=== PATIENT | female | born 1940 | race Caucasian/White ===

== ENCOUNTER 2016-07-31 09:01 | Outpatient (CLI) ==
[2016-07-31 09:21] LABS: BILIRUBIN,URINE Negative (NEGATIVE); KETONES,URINE Negative (NEGATIVE); LEUKOCYTE ESTERASE ,URINE 1+ (NEGATIVE); NITRITE,URINE Positive (NEGATIVE); PROTEIN,URINE Negative (NEGATIVE); URINE, BLOOD Negative (NEGATIVE)
[2016-07-31 09:22] LABS: ADD URINE MICROSCOPIC YES
[2016-07-31 09:26] LABS: BACTERIA,URINE 3+ (NOT PRESENT)
== END 2016-07-31 09:02 | disposition home or self-care (01) ==
LOC: NONPT 09:01
PROVIDERS: ATTEND Family Medicine
DX: R41.0 Disorientation, unspecified (principal); Z79.899 Other long term (current) drug therapy
CPT/HCPCS: 81001; 87086; 87186

== ENCOUNTER 2016-09-24 12:13 | Outpatient (CLI) | END 2016-09-24 12:14 | LOC: AMBL 12:13 | PROVIDERS: ATTEND Internal Medicine | DX: R05 Cough (principal); R09.89 Other specified symptoms and signs involving the circulatory and respiratory systems; R09.02 Hypoxemia; M62.40 Contracture of muscle, unspecified site; R41.82 Altered mental status, unspecified; R41.0 Disorientation, unspecified; R40.2421 Glasgow coma scale score 9-12, in the field [EMT or ambulance]; Z86.73 Personal history of transient ischemic attack (TIA), and cerebral infarction without residual deficits ==

== ENCOUNTER 2017-04-23 07:17 | Outpatient (CLI) | END 2017-04-23 07:18 | disposition short-term general hospital (02) | LOC: AMBL 07:17 | PROVIDERS: ATTEND Emergency Medicine | DX: R50.9 Fever, unspecified (principal); R06.9 Unspecified abnormalities of breathing; R05 Cough ==

== ENCOUNTER 2017-05-12 13:46 | Outpatient (CLI) ==
[2017-05-12 21:44] VITALS: BMI 25.4
== END 2017-05-12 13:47 | disposition home or self-care (01) ==
LOC: NONPT 13:46
PROVIDERS: ATTEND Emergency Medicine
DX: R30.0 Dysuria (principal)
CPT/HCPCS: 81001; 87086

== ENCOUNTER 2017-05-12 15:02 | Inpatient (IN) | payer OTHER ==
--- NOTE | 2017-05-12 17:03 | ED.PDOC ---
General ED Provider: Dr. CHICO PORTER Chief Complaint: Diabetes Stated Complaint: Blood glucose at the SC was elevated to over 500 and was sent out for evaluation. Sent here for evaluation for possible infection. Long standing head injury patient. Minimally responsive. Time Seen by Physician: 16:30 Mode of Arrival: Ambulance Information Source: Family, Long-Term, EMT Exam Limitations: Clinical condition, Altered mental status Primary [facility] Nursing and Triage Documentation Reviewed and Agree: Yes Reviewed sepsis parameters & appropriate labs ordered?: Yes System Inflammatory Response Syndrome: Not Applicable Sepsis Protocol: For patient's 13 years and over: Temp is 96.8 and below OR 101 and greater Pulse >90 BPM Resp >20/minute Acutely Altered Mental Status Are patient's symptoms suggestive of a new infection, such as: -Pneumonia -Skin, Soft Tissue -Endocarditis -UTI -Bone, Joint Infection -Implantable Device -Acute Abdominal Infection -Wound Infection -Meningitis -Blood Stream Catheter Infection -Unknown System Inflammatory Response Syndrome: Not Applicable Endocrine Complaint Exam - Diabetic Complication Complaint/Exam Symptoms Are: Still present Timing: Intermittent Initial Severity: Moderate Current Severity: None Character: Unresponsive (minimally verbal) Aggravating: Reports: None Alleviating: Reports: None Associated Signs and Symptoms: Denies: Decreased LOC, Polydipsia, Polyuria, Abdominal pain, Nausea, Vomiting, Fever, Diaphoresis Related History: Reports: DM 2, Insulin requiring Cardiac Risk Factors: Reports: Hypertension, Elevated lipids CVA Risk Factors: Reports: Hypertension Serious Bacterial Infection Risk Factors: Reports: None Related Surgical History: Reports: None Acetone on Breath: No Dry Mucous Membranes: Yes Kussmaul Respirations: No Meningeal Signs: No Focal Weakness: None Focal Sensory Loss: None Gait: Unable Nystagmus Present: No Gag Reflex Present: No Heel to Toe Normal: No Review of Systems - Review Of Systems Constitutional: Reports: Malaise, Weakness Eyes: Reports: No symptoms Ears, Nose, Mouth, Throat: Reports: Loose teeth Respiratory: Reports: No symptoms Cardiac: Reports: No symptoms GI: Reports: No symptoms : Reports: No symptoms Musculoskeletal: Reports: No symptoms Neurological: Reports: Anxiety, Weakness Endocrine: Reports: No symptoms Hematologic/Lymphatic: Reports: No symptoms All Other Systems: Reviewed and Negative Past Medical History - Past Medical History Endocrine: Reports: DM 2, Hypothyroid Cardiovascular: Reports: Hypertension, Other (Elevated lipids) Respiratory: Reports: None Hematological: Reports: None Gastrointestinal: Reports: GERD Genitourinary: Reports: UTI Neuro/Psych: Reports: Dementia Musculoskeletal: Reports: None Cancer: Reports: None Last Menstrual Period: menopause - Surgical History General Surgical History: Reports: None - Family History Family History: Reports: None - Social History Smoking Status: Never smoker Hx Substance Use: No Alcohol Screening: None Lives: In Long-Term Physical Exam - Physical Exam Appearance: Ill-appearing, Obese Ill-appearing: Mild Eyes: WILY, EOMI ENT: Ears normal, Nose normal Neck: Supple Respiratory: Airway patent, Breath sounds clear Cardiovascular: RRR, Pulses normal GI/: Soft, Nontender, No masses, Bowel sounds normal Musculoskeletal: Normal strength Skin: Warm Neurological: Alert to verbal, Abnormal reflexes Psychiatric: Anxious Critical Care Note - Critical Care Note Total Time (mins): 0 Course - Course Hematology/Chemistry: 05/12/17 17:42 05/12/17 17:42 Orders, Labs, Meds: Lab Review 05/12/17 05/12/17 05/12/17 17:38 17:42 17:42 WBC 16.57 H RBC 5.33 Hgb 17.2 H Hct 50.8 H MCV 95.3 MCH 32.3 H MCHC 33.9 RDW Coeff of Elijah 13.2 Plt Count 309 Immature Gran % (Auto) 0.4 Neut % (Auto) 66.3 Lymph % (Auto) 22.5 [place] % (Auto) 8.7 Eos % (Auto) 1.8 Baso % (Auto) 0.3 Immature Gran # (Auto) 0.1 Neut # (Auto) 11.0 H Lymph # (Auto) 3.7 H [place] # (Auto) 1.4 Eos # (Auto) 0.3 Baso # (Auto) 0.1 Sodium 146 H Potassium 3.7 Chloride 104 Carbon Dioxide 31 Anion Gap 14.7 BUN 27 H Creatinine 1.11 Estimated GFR (MDRD) 48.00 BUN/Creatinine Ratio 24.32 Glucose 339 H Calcium 10.7 H Total Bilirubin 0.6 AST 19 ALT 36 Alkaline Phosphatase 187 H Total Protein 7.7 Albumin 3.0 L Globulin 4.7 Albumin/Globulin Ratio 0.64 Influ A Molecular Assay Negative by naat Influ B Molecular Assay Negative by naat Orders Category Date Time Status ADMIT PATIENT INPATIENT .TO MEDSURG (MONITORED BED) ADMISSION 05/12/17 19: 35 Active OXYGEN Routine CARDIO 05/12/17 19:36 Ordered ACTIVITY .BR with BRP CARE 05/12/17 19:36 Active BLOOD GLUCOSE MONITORING 0630,1100,1700,2100 CARE 05/12/17 19:36 Active INTAKE & OUTPUT Q8HR CARE 05/12/17 19:36 Active TELEMETRY MONITORING TELE CARE 05/12/17 19:36 Active VITAL SIGNS Q4HR CARE 05/12/17 19:36 Active CARDIAC DIET DIETARY 05/12/17 Breakfast Ordered CBC W/ AUTO DIFF DAILY@0600 LAB 05/13/17 06:00 Ordered CBC W/ AUTO DIFF DAILY@0600 LAB 05/14/17 06:00 Ordered CBC W/ AUTO DIFF Stat LAB 05/12/17 17:42 Completed CMP [COMPREHENSIVE METABOLIC PANEL] Stat LAB 05/12/17 17:42 Completed COMPREHENSIVE METABOLIC PANEL DAILY@0600 LAB 05/13/17 06:00 Ordered COMPREHENSIVE METABOLIC PANEL DAILY@0600 LAB 05/14/17 06:00 Ordered CREATINE KINASE Q8H LAB 05/13/17 01:45 Ordered CREATINE KINASE Q8H LAB 05/13/17 09:45 Ordered FLU A & B MOLECULAR [FLU A/B MOLECULAR] Stat LAB 05/12/17 17:38 Completed RAPID STREP SCREEN [MOLECULAR GROUP A STREP] Stat LAB 05/12/17 17:38 Completed TROPONIN I Q8H LAB 05/13/17 01:45 Ordered TROPONIN I Q8H LAB 05/13/17 09:45 Ordered Acetaminophen [Tylenol] MEDS 05/12/17 19:36 Ordered 650 mg PO Q4H PRN Amantadine HCl [Amantadine] MEDS 05/12/17 21:00 Ordered 100 mg PO BID Amlodipine Besylate [Norvasc] MEDS 05/13/17 09:00 Ordered 5 mg PO DAILY Aspirin [Aspirin EC] MEDS 05/13/17 09:00 Ordered 81 mg PO DAILY Calcium Carbonate/Vitamin D3 [Calcium 600 + Vit D MEDS 05/12/17 21:00 Ordered Tablet] 1 each PO BID Ceftriaxone Sodium [Rocephin] 1 gm MEDS 05/12/17 20:00 Ordered 0.9 % Sodium Chloride [Sodium Chloride] 50 ml IV DAILY Ipratropium/Albuterol Neb [Duoneb] MEDS 05/13/17 00:00 Ordered 1 vial NEB RTQ6H Levothyroxine Sodium [Synthroid] MEDS 05/13/17 09:00 Ordered 100 mcg PO DAILY Methylphenidate HCl [Ritalin] MEDS 05/12/17 21:00 Ordered 20 mg PO BID Nystatin [Nystop Powder] MEDS 05/12/17 21:00 Ordered 1 applic TP Q8HR Pantoprazole Sodium [Protonix] MEDS 05/13/17 09:00 Ordered 40 mg PO DAILY Polyvinyl Alcohol [Artificial Tears Opth Marina] MEDS 05/12/17 20:00 Ordered 1 drop OP Q12H Potassium Chloride [K-Dur] MEDS 05/12/17 21:00 Ordered 20 meq PO BID Sennosides/Docusate Sodium [Sennosides-Docusate Sodium MEDS 05/12/17 21:00 Ordered Tab] 1 each PO BEDTIME Simvastatin [Zocor] MEDS 05/12/17 21:00 Ordered 10 mg PO BEDTIME Sodium Chloride 0.9% [Sodium Chloride] 1,000 ml MEDS 05/12/17 20:00 Ordered IV 50 mls/hr RESUSCITATION STATUS Routine OTHERS 05/12/17 19:36 Ordered CHEST, 1V AP ONLY Stat RADS 05/12/17 17:19 Taken Medications Generic Name Dose Route Start Last Admin Trade Name Freq PRN Reason Stop Dose Admin Acetaminophen 650 mg 05/12/17 19:36 Tylenol PO Q4H PRN Mild Pain Albuterol/Ipratropium 1 vial 05/13/17 00:00 Duoneb NEB RTQ6H FRANCES Amlodipine Besylate 5 mg 05/13/17 09:00 Norvasc PO DAILY FRANCES Artificial Tears 1 drop 05/12/17 20:00 Artificial Tears Opth Marina OP Q12H FRANCES Aspirin 81 mg 05/13/17 09:00 Aspirin Ec PO DAILY FRANCES Ceftriaxone Sodium 1 gm/ 50 mls @ 75 mls/hr 05/12/17 20:00 Sodium Chloride IV DAILY FRANCES Sodium Chloride 1,000 mls @ 50 mls/hr 05/12/17 20:00 Sodium Chloride IV .Q20H FRANCES Levothyroxine Sodium 100 mcg 05/13/17 09:00 Synthroid PO DAILY FRANCES Non-Formulary Medication 1 each 05/12/17 21:00 Calcium Carbonate/Vitamin D3 [Calcium 600 + Vit D Tablet] PO BID FRANCES Non-Formulary Medication 20 mg 05/12/17 21:00 Methylphenidate Hcl [Ritalin] PO BID [facility] Non-Formulary Medication 1 each 05/12/17 21:00 Sennosides/Docusate Sodium [Sennosides-Docusate Sodium Tab] PO BEDTIME FRANCES Non-Formulary Medication 100 mg 05/12/17 21:00 Amantadine Hcl [Amantadine] PO BID [facility] Nystatin 1 applic 05/12/17 21:00 Nystop Powder TP Q8HR [facility] Pantoprazole Sodium 40 mg 05/13/17 09:00 Protonix PO DAILY [facility] Potassium Chloride 20 meq 05/12/17 21:00 K-Dur PO BID [facility] Simvastatin 10 mg 05/12/17 21:00 Zocor PO BEDTIME [facility] Vital Signs: Temp Pulse Resp BP Pulse Ox 05/12/17 15:03 96.5 F L 110 H 20 121/85 95 Departure - Departure Time of Disposition: 19:00 Disposition: ADMITTED INPATIENT Discharge Problem: Uncontrolled diabetes mellitus, Dehydration Condition: Fair Pt referred to PMD for follow-up: Yes (Dr Stevenson agrees to admit patient) IPMP verified?: No Allergies/Adverse Reactions: Allergies benzocaine Adverse Reaction (Verified 05/12/17 15:20) procaine [From Novocain] Adverse Reaction (Verified 05/12/17 15:20) Home Medications: Ambulatory Orders Acetaminophen [Mapap] 1,000 mg PO Q6HR PRN 05/12/17 Amantadine HCl [Amantadine] 100 mg PO BID 05/12/17 Amlodipine Besylate [Norvasc] 5 mg PO DAILY 05/12/17 Aspirin [Adult Aspirin Regimen] 81 mg PO DAILY 05/12/17 Calcium Carbonate/Vitamin D3 [Calcium 600 + Vit D Tablet] 1 each PO BID Cyanocobalamin (Vitamin B-12) [Cyanocobalamin Injection] 1,000 mcg IJ MONTHLY Dextromethorphan Polistirex 60 mg PO Q12H PRN 05/12/17 Furosemide [Lasix Tab] 40 mg PO BIDAC 05/12/17 Glimepiride [Amaryl] 8 mg PO DAILY 05/12/17 Insulin Regular, Human [Humulin R] 14 unit SUBCUT PRN PRN 05/12/17 Ipratropium/Albuterol Neb [Duoneb] 1 vial NEB Q12H PRN 05/12/17 Levothyroxine Sodium 100 mcg PO DAILY 05/12/17 Methylphenidate HCl [Ritalin] 20 mg PO BID 05/12/17 Nystatin [Nystop Powder] 1 applic TP Q8HR 05/12/17 Pantoprazole Sodium [Protonix] 40 mg PO DAILY 05/12/17 Polyvinyl Alcohol [Artificial Tears] 1 drop OP Q12H 05/12/17 Potassium Chloride [Klor-Con M20] 20 meq PO BID 05/12/17 Sennosides/Docusate Sodium [Sennosides-Docusate Sodium Tab] 1 each PO BEDTIME Simvastatin 10 mg PO BEDTIME 05/12/17 Disposition Discussed With: Patient, Family
[2017-05-12] MEDS ORDERED: TYLENOL PO PRN (19:36)
[2017-05-12] MEDS ORDERED: ARTIFICIAL TEARS OPTH SOL OP SCH (20:00)
[2017-05-12] MEDS ORDERED: ROCEPHIN 1 GM in SODIUM CHLORIDE 50 ML IV SCH (20:00)
[2017-05-12] MEDS ORDERED: NON-FORMULARY MEDICATION (Calcium Carbonate/Vitamin D3 [Calcium 600 + Vit D Tablet] 1 EACH PO SCH (21:00)
[2017-05-12] MEDS ORDERED: DOCUSATE SODIUM PO SCH (21:00)
[2017-05-12] MEDS ORDERED: NON-FORMULARY MEDICATION (Amantadine Hcl [Amantadine] 100 MG) PO SCH (21:00)
[2017-05-12] MEDS ORDERED: [UNRECOGNIZED DRUG - OTHER] PO SCH (21:00)
[2017-05-12] MEDS ORDERED: SENNOSIDES PO SCH (21:00)
[2017-05-12 21:44] VITALS: BMI 25.4
[2017-05-12] MEDS ORDERED: ROCEPHIN ONE (22:26)
[2017-05-12] MEDS: SODIUM CHLORIDE 1,000 ML IV SCH (22:30)
[2017-05-12] MEDS: NYSTOP POWDER TP SCH (22:31)
[2017-05-12] MEDS: K-DUR PO SCH (22:31)
[2017-05-12] MEDS: ZOCOR PO SCH (22:31)
[2017-05-12] MEDS: NON-FORMULARY MEDICATION (Methylphenidate Hcl [Ritalin] 20 MG) PO SCH (22:35)
[2017-05-12] MEDS: HUMULIN R SUBCUT PRN (23:18)
[2017-05-13] MEDS: SYNTHROID PO SCH (05:50)
[2017-05-13] MEDS: NYSTOP POWDER TP SCH ×3 (05:51→20:28)
[2017-05-13] MEDS: HUMULIN R SUBCUT PRN ×4 (05:57→20:40)
--- NOTE | 2017-05-13 07:06 | DI ---
EXAM: Chest one view, frontal view only. HISTORY: Hyperglycemia. COMPARISON: None available. FINDINGS: Heart size is normal. Aortic atherosclerotic calcifications present. There is no vascula r congestion. There is blunting of the left costophrenic angle by a somewhat rounded opacity. The sheeba ngs otherwise clear. No pneumothorax identified. No acute osseous abnormality is detected. Clips s een in the right upper quadrant of the abdomen. IMPRESSION: Blunting of the left costophrenic angle could be due to pleural fluid or consolidation, among other p rocesses. PA and lateral chest radiographs or chest CT recommended when patient's condition permits.
[2017-05-13] MEDS ORDERED: SYNTHROID PO SCH (09:00)
[2017-05-13] MEDS: K-DUR PO SCH ×2 (09:07→20:29)
[2017-05-13] MEDS: ASPIRIN EC PO SCH (09:07)
[2017-05-13] MEDS: CALCIUM 500 + VIT D 200 MG TABLET PO SCH ×2 (09:07→20:29)
[2017-05-13] MEDS: ARTIFICIAL TEARS OPTH SOL OP SCH ×2 (09:07→20:28)
[2017-05-13] MEDS: NORVASC PO SCH (09:08)
[2017-05-13] MEDS: PROTONIX PO SCH (09:08)
[2017-05-13] MEDS: SYMMETREL PO SCH ×2 (09:08→20:29)
[2017-05-13] MEDS: LANTUS SUBCUT SCH (09:20)
[2017-05-13] MEDS: NON-FORMULARY MEDICATION (Methylphenidate Hcl [Ritalin] 20 MG) PO SCH (11:11)
[2017-05-13] MEDS ORDERED: RITALIN PO SCH (13:30)
[2017-05-13] MEDS: RITALIN PO SCH ×2 (13:46→20:40)
[2017-05-13] MEDS: DUONEB NEB SCH ×5 (13:46→22:42)
[2017-05-13] MEDS ORDERED: VANCOMYCIN 1,000 MG in SODIUM CHLORIDE 200 ML IV SCH (15:00)
[2017-05-13] MEDS: VANCOMYCIN 1 GM in SODIUM CHLORIDE 250 ML IV SCH (15:38)
--- NOTE | 2017-05-13 17:18 | CT ---
EXAM: CT of the abdomen and pelvis without contrast. HISTORY: Pain. PROCEDURE: Contiguous axial CT images of the abdomen and pelvis without contrast with coronal and sa gittal reformats. FINDINGS: There is minimal bibasilar dependent atelectasis. The liver is normal in appearance. The gallbladder is surgically absent. The pancreas, spleen, adrenal glands and kidneys are normal in pepper earance. The abdominal aorta is within normal limits in diameter. There is a suture line along the gr eater curvature of the stomach. The appendix is normal in appearance. There is diverticulosis of th e colon with no evidence of diverticulitis. No free fluid or free air in the abdomen or pelvis. The b ladder is minimally filled with no abnormality identified. The uterus is unremarkable. There is a sm all umbilical hernia containing only fat. There is focal soft tissue density in the subcutaneous fat of the right anterior pelvic wall measuring 2.7 cm consistent with an injection site. There are dege nerative changes in the spine. Impression: Diverticulosis of the colon without diverticulitis. Umbilical hernia as described. Focal area of soft tissue density in the subcutaneous fat of the right anterior pelvic wall measuring 2.7 cm, consistent with an injection site. Cholecystectomy. Minimal bibasilar dependent atelectasis.
[2017-05-13] MEDS: SODIUM CHLORIDE 1,000 ML IV SCH (18:36)
[2017-05-13] MEDS: COLACE PO SCH (20:29)
[2017-05-13] MEDS: ZOCOR PO SCH (20:29)
[2017-05-13] MEDS: SENNA PO SCH (20:30)
[2017-05-13] MEDS: ROCEPHIN 1 GM in SODIUM CHLORIDE 50 ML IV SCH (22:30)
[2017-05-14] MEDS: DUONEB NEB SCH ×4 (04:45→20:45)
[2017-05-14] MEDS: NYSTOP POWDER TP SCH ×3 (06:27→22:21)
[2017-05-14] MEDS: SYNTHROID PO SCH (06:27)
[2017-05-14] MEDS: PROTONIX PO SCH (06:27)
[2017-05-14] MEDS: VANCOMYCIN 1 GM in SODIUM CHLORIDE 250 ML IV SCH (08:44)
[2017-05-14] MEDS: CALCIUM 500 + VIT D 200 MG TABLET PO SCH ×2 (08:45→22:28)
[2017-05-14] MEDS: K-DUR PO SCH ×2 (08:45→22:28)
[2017-05-14] MEDS: ASPIRIN EC PO SCH (08:45)
[2017-05-14] MEDS: NORVASC PO SCH (08:45)
[2017-05-14] MEDS: SYMMETREL PO SCH ×2 (08:45→22:28)
[2017-05-14] MEDS: ARTIFICIAL TEARS OPTH SOL OP SCH ×2 (08:46→22:26)
[2017-05-14] MEDS: LANTUS SUBCUT SCH (08:59)
[2017-05-14] MEDS: RITALIN PO SCH ×2 (09:01→22:28)
[2017-05-14] MEDS: HUMULIN R SUBCUT PRN ×2 (12:10→22:18)
[2017-05-14] MEDS: SODIUM CHLORIDE 1,000 ML IV SCH (18:15)
[2017-05-14] MEDS: ROCEPHIN 1 GM in SODIUM CHLORIDE 50 ML IV SCH (22:20)
[2017-05-14] MEDS: SENNA PO SCH (22:28)
[2017-05-14] MEDS: ZOCOR PO SCH (22:28)
[2017-05-14] MEDS: COLACE PO SCH (22:28)
[2017-05-15 04:12] VITALS: TEMP 98.5
[2017-05-15] MEDS: DUONEB NEB SCH ×2 (04:52→10:14)
[2017-05-15 05:34] VITALS: BP 99/66
[2017-05-15] MEDS: NYSTOP POWDER TP SCH (05:47)
[2017-05-15] MEDS: PROTONIX PO SCH (05:48)
[2017-05-15] MEDS: SYNTHROID PO SCH (05:48)
[2017-05-15] MEDS: HUMULIN R SUBCUT PRN ×2 (06:17→11:52)
[2017-05-15] MEDS: ASPIRIN EC PO SCH (08:17)
[2017-05-15] MEDS ORDERED: LANTUS SUBCUT SCH (08:28)
[2017-05-15] MEDS: VANCOMYCIN 1 GM in SODIUM CHLORIDE 250 ML IV SCH (09:17)
[2017-05-15] MEDS: RITALIN PO SCH (09:22)
[2017-05-15] MEDS: SYMMETREL PO SCH (09:22)
[2017-05-15] MEDS: CALCIUM 500 + VIT D 200 MG TABLET PO SCH (09:22)
[2017-05-15] MEDS: K-DUR PO SCH (09:22)
[2017-05-15] MEDS: ARTIFICIAL TEARS OPTH SOL OP SCH (09:23)
[2017-05-15] MEDS: NORVASC PO SCH (09:23)
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
--- NOTE | 2017-05-15 11:26 | CM.DICTOOL ---
ADMISSION: 05/12/17 19:40 DISCHARGE: 05/15/17 DATE OF SERVICE: 05/15/17 FINAL DIAGNOSIS UNCONTROLLED DM HYPERGLYCEMIA DEHYDRATION HALLUCINATIONS/DELIRIUM STAGE II DECUBITUS ULCER, COCCYX (PRESENT ON ADMISSION) CVA CAD CHF HYPERTENSION DYSLIPIDEMIA HYPOTHYROIDISM DYSPHAGIA APHASIA R/T CVA INTESTINAL FISTULA CATARACT EXTRACTION LAST VITALS Temp Pulse Resp BP Pulse Ox 98.5 F 85 20 99/66 98 05/15/17 05:33 05/15/17 05:33 05/15/17 05:33 05/15/17 05:33 05/15/17 05:33 ACTIVE MEDICATIONS Acetaminophen (Tylenol) 1,000 mg PO Q6H PRN PRN Reason: Mild Pain Albuterol/Ipratropium (Duoneb) 1 vial NEB RT Q12 PRN Last Admin: 05/15/17 04:52 Dose: 1 vial Amantadine HCl (Symmetrel) 100 mg PO BID [facility] Last Admin: 05/15/17 09:22 Dose: 100 mg Amlodipine Besylate (Norvasc) 5 mg PO DAILY [facility] Last Admin: 05/15/17 09:23 Dose: 5 mg Artificial Tears (Artificial Tears Opth Marina) 1 drop OP Q12HR [facility] Last Admin: 05/15/17 09:23 Dose: 1 drop Aspirin (Aspirin Ec) 81 mg PO DAILYWM [facility] Last Admin: 05/15/17 08:17 Dose: 81 mg Calcium/Vitamin D (Calcium 500 + Vit D 200 Mg Tablet) 1 each PO BID [facility] Last Admin: 05/15/17 09:22 Dose: 1 each Dextromethorphan Polistirex 60 mg PO Q12 PRN Furosemide (Lasix) 40 mg PO DAILYAC Insulin Human Regular (Humulin R) 14 unit SUBCUT PRN PRN; Protocol PRN Reason: Hyperglycemica Last Admin: 05/15/17 06:17 Dose: 3 unit Levothyroxine Sodium (Synthroid) 100 mcg PO QDAC [facility] Last Admin: 05/15/17 05:48 Dose: 100 mcg Methylphenidate HCl (Ritalin 10 Mg) 20 mg PO BID [facility] Last Admin: 05/15/17 09:22 Dose: 20 mg Nystatin (Nystop Powder) 1 applic TP Q8HR [facility] Last Admin: 05/15/17 05:47 Dose: 1 applic Pantoprazole Sodium (Protonix) 40 mg PO QDAC [facility] Last Admin: 05/15/17 05:48 Dose: 40 mg Potassium Chloride (K-Dur) 20 meq PO BID [facility] Last Admin: 05/15/17 09:22 Dose: 20 meq Sennosides (Senna) 8.6 mg PO BEDTIME [facility] Last Admin: 05/14/17 22:28 Dose: 8.6 mg Simvastatin (Zocor) 10 mg PO BEDTIME [facility] Last Admin: 05/14/17 22:28 Dose: 10 mg ALLERGIES benzocaine Adverse Reaction (Verified 05/12/17 15:20) procaine [From Novocain] Adverse Reaction (Verified 05/12/17 15:20) NEW PRESCRIPTIONS: DISCONTINUE AMARYL DECREASE LASIX ADMINISTRATION FREQUENCY TO 40 MG PO DAILY NEW MEDICATIONS OMNICEF 300 MG PO BID X 5 DAYS LANTUS 8 UNITS SUBCUT DAILY SMOKING: NON SMOKER LAB REVIEW: 05/15/17 07:40 05/15/17 07:40 05/15/17 07:40: Sodium 143, Potassium 4.0, Chloride 109 H, Carbon Dioxide 26, Anion Gap 12.0, BUN 9, Creatinine 0.67, Estimated GFR (MDRD) 86.00, BUN/ Creatinine Ratio 13.43, Glucose 129 H, Calcium 9.6, Total Bilirubin 0.5, AST 17 , ALT 24, Alkaline Phosphatase 145 H, Total Protein 6.0, Albumin 2.5 L, Globulin 3.5, Albumin/Globulin Ratio 0.71 05/15/17 07:40: WBC 7.82, RBC 3.94 L, Hgb 13.0, Hct 39.2, MCV 99.5 H, MCH 33.0 H , MCHC 33.2, RDW Coeff of Elijah 13.6, Plt Count 246, Immature Gran % (Auto) 0.3, Neut % (Auto) 64.7, Lymph % (Auto) 23.0, [place] % (Auto) 7.4, Eos % (Auto) 4.2, Baso % (Auto) 0.4, Immature Gran # (Auto) 0.0, Neut # (Auto) 5.1, Lymph # (Auto ) 1.8, [place] # (Auto) 0.6, Eos # (Auto) 0.3, Baso # (Auto) 0.0 PLAN: DISCHARGE BACK TO [facility] TODAY DR. NEVAREZ WILL FOLLOW THIS PATIENT DURING USUAL RESIDENTIAL ROUNDS IN ONE WEEK RESUME RESIDENTIAL MEDICATIONS DISCONTINUE AMARYL DECREASE LASIX ADMINISTRATION FREQUENCY TO 40 MG PO DAILY NEW MEDICATIONS OMNICEF 300 MG PO BID X 5 DAYS LANTUS 8 UNITS SUBCUT DAILY ACTIVITY MAY PARTICIPATE IN RESIDENTIAL ACTIVITY PROGRAM TOLERATED DIET CONSISTENT CARBS, MECHANICAL SOFT TEXTURE, REGULAR CONSISTENCY PATIENT SHOULD RECEIVE A NIGHT SNACK EVERY DAY OTHER CBC WITH DIFF AND CMP IN ONE WEEK ACCU-CHECKS ACHS FOR ONE WEEK V/S DAILY FOR ONE WEEK SKIN BREAKDOWN PREVENTION SUMMARY THE PATIENT IS LETHARGIC BUT RESPONSIVE TO LIGHT TOUCH. SHE REMAINS NONVERBAL BUT COOPERATIVE FOR CARE. SHE REQUIRES COMPLETE CARE AND ASSISTANCE FOR ADL'S. SHE IS NOT AMBULATORY. CURRENTLY SHE RESIDES AT [facility]. HER FAMILY DESIRE RETURN THERE AT DISCHARGE. SKIN TURGOR IS FRAGILE. MS. PECK HAS EXCORIATION UNDER BOTH BREASTS, ABDOMINAL PANNICULUS AND GROIN SKIN FOLDS PRESENT ON ADMISSION. SMALL SLIT- LIKE OPEN AREA TO THE GLUTEAL CREASE WAS ALSO PRESENT ON ADMISSION. THIS AREA IS DRY, PINK AND LEFT OPEN TO AIR. THE NURSING STAFF HAVE BEEN PROVIDING APPROPRIATE SKIN CARE AND PRESSURE RELIEVING MEASURES THAT WILL BE CONTINUED AT THE RESIDENTIAL. THE PATIENT'S FAMILY IS AWARE OF TODAY'S DISCHARGE PLANS. CURRENT CODE STATUS DO NOT RESUSCITATE WANDER NEVAREZ M.D.
--- NOTE | 2017-05-19 10:09 | DS ---
DATE OF SERVICE: 05/15/17 FINAL DIAGNOSIS: 1. Uncontrolled Diabetes 2. Hyperglycemia 3. Dehydration 4. Hallucinations/Delirium 5. Stage II Decubitus ulcer, Coccyx (present on admission) 6. CVA 5. Coronary artery disease 6. Congestive heart failure 7. Hypertension 8. Dyslipidemia 9. Hypothyroidism 10.Dysphagia 11.Aphasia Right CVA 12.Intestinal fistula 13.Cataract extraction LAST VITALS: Temperature 98.5, pulse 85, respiratory rate 20, blood pressure 99/66 and pulse ox 98%. DISCHARGE INSTRUCTIONS: Discharge back to [facility] today. Dr. Stevenson will follow this patient during usual [facility] rounds in one week. Resume usp medications. Discontinue Amaryl, Decrease Lasix administration frequency to 40mg PO daily. CBC with diff and CMP in one week. Accu-checks ACHS for one week. Vital signs for one week. Skin breakdown prevention. MEDICATIONS AT DISCHARGE: Tylenol 1,000mg PO Q 6 hours PRN DUO NEBS 1 vial NEB RT Q 12 PRN Symmetrel 100mg PO twice a day Norvasc 5mg PO daily Artifical tears 1 drop OP Q 12 hours Aspirin 81mg PO daily Calcium 500+Vitamin D 200mg one each PO twice a day Dextromethorphan Polistirex 60mg PO Q 12 hours PRN Lasix 40mg PO daily Humulin R 14 units SUBCUT PRN Synthroid 100mcg PO QDAC Ritalin 10mg PO twice a day Nystop Powder 1 application TP Q 8 hours Protonix 40mg PO QDAC K-Dur 20meq PO twice a day Senna 8.6mg PO bedtime Zocor 10mg PO bedtime ALLERGIES: Benzocaine Procaine NEW PRESCRIPTIONS: Discontinue Amaryl Decrease Lasix administration frequency to 40mg PO daily Omnicef 300mg PO twice a day for 5 days Lantus 8 units SUBCUT daily DIET INSTRUCTIONS: Consistent carbohydrates, mechanical soft texture, regular consistency. Patient should receive a night snack every day. ACTIVITY: May participate in [facility] activity program as tolerated. SMOKING: Non smoker DISEASE SPECIFIC EDUCATION: Medication changes New Medications Followups Accu-checks HOSPITAL COURSE: Humza Rader was brought to the emergency room the patient's blood sugars were more than 400-500. The patient was recently at the [facility] with bilateral basal pneumonia and she was started on some Prednisone. Usually the patient takes Amaryl at the [facility] for the diabetes but ever since she came from the [facility] the sugars been more than 400-500 and the patient was weak , tired and Lethargic. At that time the patient was sent to the emergency room for further evaluation. The patient was seen by ER physician at the [facility], Dr. Spangler. WBC 16,000, blood sugars 339, sodium 146, urine was positive for leukocyte esterase, Serology negative. Chest x-ray does show bibasilar infiltrates. CT abdomen and pelvis was negative. The patient was admitted to the hospital and started on the IV antibiotic Rocephin and Vancomycin because of the bibasilar infiltrates and the urinary tract infection that antibiotics were started. Her WBC was elevated also. Most likely the reason for the dehydration. Accu-checks with coverage were done for the day 1 and the next day we started on the Lantus 8 units. A1c was ordered which was 9.1. Sugars dropped to 69. Given her age and multiple medical problems as she is not going to realize the low sugars so we wanted to observe one more day. Meanwhile the BUN, creatinine and WBC became normal. Hospital course was uneventful. The patient's was present during the hospital stay. Lantus insulin with decreased to the 8 units from 10 units. Night time snack was ordered. The patient will be monitored with the Accu-checks Ac and HS for one week and will make a log out of it a decide how much insulin she should be on which was discussed with the patient's who is a very much caring person. TIME SPENT: MORE THAN 65 MINUTES CHETNA
== END 2017-05-15 13:15 | DRG 637 ==
LOC: ED 15:02 → MEDSURG B 19:40
PROVIDERS: ADMIT Emergency Medicine; ATTEND Emergency Medicine
DX: E11.65 Type 2 diabetes mellitus with hyperglycemia (principal); G82.50 Quadriplegia, unspecified; R44.3 Hallucinations, unspecified; K63.2 Fistula of intestine; E86.0 Dehydration; R30.0 Dysuria; R13.10 Dysphagia, unspecified; I69.320 Aphasia following cerebral infarction; L89.152 Pressure ulcer of sacral region, stage 2; I25.10 Atherosclerotic heart disease of native coronary artery without angina pectoris; I50.9 Heart failure, unspecified; I10 Essential (primary) hypertension; F03.90 Unspecified dementia, unspecified severity, without behavioral disturbance, psychotic disturbance, mood disturbance, and anxiety; E78.5 Hyperlipidemia, unspecified; E03.9 Hypothyroidism, unspecified; Z87.01 Personal history of pneumonia (recurrent); Z79.4 Long term (current) use of insulin; Z79.899 Other long term (current) drug therapy; Z87.820 Personal history of traumatic brain injury; V89.2XXS Person injured in unspecified motor-vehicle accident, traffic, sequela
CPT/HCPCS: 36415; 80053; 81001; 82550; 82962; 83036; 84484; 85025; 87081; 87086; 87186; 87502; 87651; 94640; 97802; 99284

== ENCOUNTER 2017-05-15 13:15 | Outpatient (CLI) | END 2017-05-15 13:16 | disposition home or self-care (01) | LOC: AMBL 13:15 | PROVIDERS: ATTEND Internal Medicine | DX: Z74.01 Bed confinement status (principal); Z86.73 Personal history of transient ischemic attack (TIA), and cerebral infarction without residual deficits; R47.01 Aphasia ==

== ENCOUNTER 2017-09-01 08:48 | Outpatient (CLI) | payer OTHER | END 2017-09-01 08:49 | disposition home or self-care (01) | LOC: NONPT 08:48 | PROVIDERS: ATTEND Emergency Medicine | DX: R82.90 Unspecified abnormal findings in urine (principal); R41.0 Disorientation, unspecified | CPT/HCPCS: 81001 ==